=== PATIENT | female | born 1935 | race Caucasian/White ===

== ENCOUNTER 2020-11-24 17:34 | Emergency (ER) | payer OTHER ==
[2020-11-24 18:46] LABS: HEMOGLOBIN 14.2 gm/dl (12.3-15.3); RED BLOOD COUNT 4.74 M/UL (4.00-5.10); WHITE BLOOD COUNT 4.9 K/UL (4.5-11.0)
[2020-11-24 19:03] LABS: BUN/CREATININE RATIO 17 (0-10)
== END 2020-11-24 20:50 | disposition home or self-care (01) ==
LOC: ER1 17:34
PROVIDERS: Physician Assistant Medical
DX: R09.81 Nasal congestion (principal); R05 Cough; I10 Essential (primary) hypertension; J45.909 Unspecified asthma, uncomplicated; Z20.822 Contact with and (suspected) exposure to COVID-19
CPT/HCPCS: 71045; 80053; 85025; 99283; U0002